=== PATIENT | female | born 1980 | race Caucasian/White ===

== ENCOUNTER 2020-07-05 16:22 | Emergency (ER) | payer SELFPAY ==
--- NOTE | 2020-07-05 17:44 | EDM.PDOC ---
ED HPI GENERAL MEDICAL PROBLEM - General Chief Complaint: Respiratory Problem Stated Complaint: NO TASTE/COUGH/CONGESTED/BURNING IN CHEST Time Seen by Provider: 07/05/20 16:36 Source of Information: Reports: Patient, RN Notes Reviewed History Limitations: Reports: No Limitations - History of Present Illness INITIAL COMMENTS - FREE TEXT/NARRATIVE: Patient is a 40 year old female presenting to the emergency department with complaints of congestion, headache, body aches, chest tightness, mild cough, and loss of taste. Symptoms have been present for the last 3 days. States 2 days ago she had some nausea and vomiting, however that has resolved. She denies a known fever, however states she has felt hot at times. Her boyfriend also has similar symptoms. Vital signs in triage were stable. Oxygen saturation 100% on room air. Patient was afebrile. head Pain Score (Numeric/FACES): 7 - Related Data Allergies Allergy/AdvReac Type Severity Reaction Status Date / Time No Known Allergies Allergy Verified 07/05/20 16:36 Home Meds: Home Meds . [No Known Home Meds] 07/05/20 [History] Past Medical History - Past Health History Medical/Surgical History: Denies Medical/Surgical History Social & Family History - Tobacco Use Tobacco Use Status *Q: Current Every Day Tobacco User Years of Tobacco use: 20 Packs/Tins Daily: 0.5 - Recreational Drug Use Recreational Drug Use: No ED ROS GENERAL - Review of Systems Review Of Systems: Comprehensive ROS is negative, except as noted in HPI. ED EXAM, GENERAL - Physical Exam Exam: See Below General Appearance: Alert, WD/WN, No Apparent Distress Throat/Mouth: Normal Inspection, Normal Lips, Normal Teeth, Normal Gums, Normal Oropharynx, Normal Voice, No Airway Compromise Respiratory/Chest: No Respiratory Distress, Lungs Clear, Normal Breath Sounds, No Accessory Muscle Use, Chest Non-Tender Cardiovascular: Normal Peripheral Pulses, Regular Rate, Rhythm, No Edema, No Gallop, No JVD, No Murmur, No Rub GI/Abdominal: Normal Bowel Sounds, Soft, Non-Tender, No Organomegaly, No Distention, No Abnormal Bruit, No Mass Neurological: Alert, Oriented, CN II-XII Intact, Normal Cognition, Normal Gait, Normal Reflexes, No Motor/Sensory Deficits Psychiatric: Normal Affect, Normal Mood Skin Exam: Warm, Dry, Intact, Normal Color, No Rash Course - Vital Signs Last Recorded V/S: Last Vital Signs Temp 97.3 F 07/05/20 16:33 Pulse 84 07/05/20 16:33 Resp 18 07/05/20 16:33 BP 131/88 07/05/20 16:33 Pulse Ox 100 07/05/20 16:33 - Orders/Labs/Meds Labs: Laboratory Tests 07/05/20 Range/Units 17:54 SARS-CoV-2 (PCR) Not detected (NOT DETECT) - Re-Assessments/Exams Free Text/Narrative Re-Assessment/Exam: Patient is a 40-year-old female presenting to the emergency department with complaints of fever, body aches, cough, chest tightness, runny nose, and loss of taste and smell. Oxygen saturation is 100% on room air. Ordered a chest x-ray and a [facility] Covid test. 07/05/20 17:42 Chest x-ray was negative for any acute abnormalities. We will discharge patient home with symptomatic treatment. Recommend quarantine until Covid results are available. Discharge instructions as documented. Departure - Departure Time of Disposition: 17:43 Disposition: Home, Self-Care 01 Condition: Good Clinical Impression: Viral respiratory illness - Discharge Information *PRESCRIPTION DRUG MONITORING PROGRAM REVIEWED*: No *COPY OF PRESCRIPTION DRUG MONITORING REPORT IN PATIENT ROSI: No Instructions: Viral Respiratory Infection, [id number] Referrals: PCP,None [Primary Care Provider] - Forms: ED Department Discharge, ED Return to Work/School Form Additional Instructions: You were seen in the emergency department today for congestion, sore throat, body aches, cough, chest tightness. Chest x-ray was completed and found to be normal. A coronavirus test has been completed. Results should be available in 24 to 72 hours. Recommend symptomatic treatment in the meantime. You should isolate until symptoms have resolved and Covid results are available. Return to ER as needed. Sepsis Event Note (ED) - Evaluation Sepsis Screening Result: No Definite Risk
--- NOTE | 2020-07-09 13:30 | CR ---
PROCEDURE INFORMATION: Exam: XR Chest, 1 View Exam date and time: 07/05/2020 4:43 PM Age: 40 years old Clinical indication: Cough and shortness of breath and other: Covid precautions TECHNIQUE: Imaging protocol: XR of the chest Views: 1 view. COMPARISON: No relevant prior studies available. FINDINGS: Lungs: Unremarkable. No consolidation. Pleural space: Unremarkable. No pleural effusion. No pneumothorax. Heart/Mediastinum: Unremarkable. No cardiomegaly. Bones/joints: Unremarkable. IMPRESSION: No acute findings. Thank you for allowing us to participate in the care of your patient. Dictated and Authenticated by: Eric Laws MD 07/05/2020 6:24 PM Central Time ([place] & [place]) HILARY
== END 2020-07-05 17:58 | disposition home or self-care (01) ==
LOC: JD.ED 16:22
DX: J98.8 Other specified respiratory disorders (principal); B97.89 Other viral agents as the cause of diseases classified elsewhere; F17.210 Nicotine dependence, cigarettes, uncomplicated; Z20.828 Contact with and (suspected) exposure to other viral communicable diseases
CPT/HCPCS: 71045; 71045-26; 99282; 99285-25; U0002

== ENCOUNTER 2020-07-14 22:52 | Emergency (ER) | payer SELFPAY ==
[2020-07-14] MEDS ORDERED: Ibuprofen 800 MG Tab PO ONE (23:20)
[2020-07-14] MEDS ORDERED: Amoxicillin/Clavulanate K 875-125 MG Tab PO STA (23:23)
--- NOTE | 2020-07-14 23:39 | EDM.PDOC ---
ED HPI GENERAL MEDICAL PROBLEM - General Chief Complaint: Neck Problem Stated Complaint: neck and head pain Time Seen by Provider: 07/14/20 23:00 Source of Information: Reports: Patient History Limitations: Reports: No Limitations - History of Present Illness INITIAL COMMENTS - FREE TEXT/NARRATIVE: Ms. Edwards is a pleasant 40-year-old woman who, medical records indicate, was seen in this ED on 07/05/2020 with a complaint at that time of nasal congestion, headache, body aches, chest tightness, a mild cough, and loss of taste since 07/02/2020. She had vomited on 07/03/2020, but none since. She had not had a fever. Her boyfriend apparently had similar symptoms. Her vitals were found to be normal, with no fever and an oxygen saturation of 100% on room air. Physical exam was unremarkable. A chest x-ray found no acute findings. A send-out swab for the SARS-CoV-2 virus subsequently returned negative. The patient was advised to self isolate, which she states she did, up until today, when her work made her return to work. The patient now returns the ED stating that she developed right ear and right posterolateral neck pain around 15:00 this afternoon, after she blew her nose. In addition, she continues to have a cough with dyspnea, fatigue, and loss of taste and smell. She has still not had a fever, nausea, vomiting, constipation, or diarrhea. The patient states that she took some [id number] cold medicine yesterday, and [place] cold medicine today. Here in the ED, the patient is found to be hemodynamically stable, afebrile, saturating 99% on room air. The patient does not have a PCP. She has not received an influenza vaccine this season, and declined an offer to receive one here tonight. 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) - Past Surgical History HEENT Surgical History: Reports: Tonsillectomy Female Surgical History: Reports: Other (See Below) (Salpingectomy) Social & Family History - Family History Family Medical History: Noncontributory - Tobacco Use Tobacco Use Status *Q: Current Every Day Tobacco User Years of Tobacco use: 11 Packs/Tins Daily: 0.5 - Caffeine Use Caffeine Use: Reports: Coffee, Soda - Alcohol Use Alcohol Use History: No Date/Time of Last Drink Comment: None since 2018 due to being on probation - Recreational Drug Use Recreational Drug Use: Yes Drug Use in Last 12 Months: No Recreational Drug Type: Reports: Marijuana/Hashish (last smoked 2017 due to being on probation), Methamphetamine (last snorted 2018 due to being on probation) - Living Situation & Occupation Living situation: Reports: , Alone Occupation: Employed ([employer]) ED ROS ENT - Review of Systems Review Of Systems: Comprehensive ROS is negative, except as noted in HPI. ED EXAM, ENT - Physical Exam Exam: See Below Exam Limited By: No Limitations General Appearance: Alert, WD/WN, Mild Distress (appears uncomfortable) Eye Exam: Bilateral Eye: EOMI, Normal Inspection Ears: Other (Left external auditory canal normal in appearance. No erythema of the left TM, however, there is some bulging with clear fluid and bubbles seen behind the TM. The right external auditory canal is notable for a trickle of fresh blood emanating along the inferior aspect. There is a piece of cerumen lodged on the wall of the canal obstructing much of the view of the tympanic membrane, and the patient is quite tender to any manipulation, however, of what is visible of the right TM, there appears to be erythema. No obvious purulence seen.) Nose: Normal Inspection, No Blood, Clear Rhinorrhea Mouth/Throat: Normal Inspection, Normal Gums, Normal Lips, Normal Oropharynx (no visible tonsils), Normal Teeth Head: Atraumatic, Normocephalic Neck: Normal Inspection, Supple, Full Range of Motion, Lymphadenopathy (R) (posterior cervical chain - tender). No: Lymphadenopathy (L) Respiratory/Chest: No Respiratory Distress, Lungs Clear, Normal Breath Sounds, No Accessory Muscle Use Cardiovascular: Normal Peripheral Pulses, Regular Rate, Rhythm, No Edema, No Gallop, No JVD, No Murmur, No Rub GI/Abdominal: Normal Bowel Sounds, Soft, Non-Tender, No Organomegaly, No Distention, No Abnormal Bruit, No Mass Back: Normal Inspection, Full Range of Motion Extremities: Normal Inspection, Normal Range of Motion, No Pedal Edema, Normal Capillary Refill Neurological: Alert, Oriented, Normal Cognition, No Motor/Sensory Deficits Psychiatric: Anxious Skin: Warm, Dry, Intact, Normal Color, No Rash Course - Vital Signs Last Recorded V/S: Last Vital Signs Temp 36.7 C 07/14/20 22:59 Pulse 94 07/14/20 22:59 Resp 20 07/14/20 22:59 BP 131/86 07/14/20 22:59 Pulse Ox 99 07/14/20 22:59 - Orders/Labs/Meds Orders: Active Orders 24 hr Category Date Time Status CORONAVIRUS COVID-19 AMANDA [[facility]LEC] Stat Lab 07/14/20 23:48 Ordered Meds: Medications Discontinued Medications Generic Name Dose Route Start Last Admin Trade Name Freq PRN Reason Stop Dose Admin Amoxicillin/Clavulanate Potassium 1 tab 07/14/20 23:23 07/14/20 23:40 Augmentin 875 Mg/125 Mg PO 07/14/20 23:24 1 tab ONETIME STA Administration Ibuprofen 800 mg 07/14/20 23:20 07/14/20 23:40 Motrin PO 07/14/20 23:21 800 mg ONETIME ONE Administration - Re-Assessments/Exams Free Text/Narrative Re-Assessment/Exam: 07/14/20 23:33 As above, the patient has had symptoms of congestion, cough, dyspnea headache, fatigue, body aches, chest tightness, no loss of taste and smell since 07/02/2020. She then developed right ear pain after she blew her nose around 15:00 this afternoon. On examination, she has blood trickling from her right external auditory canal, consistent with a ruptured tympanic membrane, however, I am unable to adequately visualize her tympanic membrane due to some unfortunately positioned cerumen, as well as tenderness to examination. She will be started on oral Augmentin and ibuprofen, and I will submit a 10-day prescription for Augmentin. She can take [id number] ibuprofen as needed for discomfort. I will refer her to ENT. The patient tested negative for the SARS-CoV-2 virus on 07/05/2020, however, I strongly suspect that it is a false negative test. We will retest her again tonight, and I will provide her a note to be off work for the next several days, until she can get her test results. Departure - Departure Time of Disposition: 23:39 Disposition: Home, Self-Care 01 Condition: Good Clinical Impression: Rupture of right tympanic membrane - Discharge Information *PRESCRIPTION DRUG MONITORING PROGRAM REVIEWED*: Not Applicable *COPY OF PRESCRIPTION DRUG MONITORING REPORT IN PATIENT ROSI: Not Applicable Prescriptions: Amoxicillin/Potassium Clav [Augmentin 875-125 Tablet] 1 tab PO Q12H #19 tablet Instructions: Tympanic Membrane Perforation-SportsMed Referrals: Lauro Crisostomo MD [Ordering Only Provider] - Forms: ED Department Discharge, ED Return to Work/School Form Additional Instructions: You were seen in the emergency room for right ear pain since this afternoon, in addition to continuing symptoms of cough, shortness of breath, fatigue, and loss of taste and smell. On examination, you appear to have a ruptured right tympanic membrane (eardrum). You have been started on the antibiotic Augmentin, and a prescription for Augmentin has been sent to the [facility]. Take 1 tablet of Augmentin every 12 hours, starting tomorrow morning, 07/15/2020. Finish the entire prescription unless told otherwise by a doctor. You may take [id number] ibuprofen, 3 to 4 tablets (600 -800 mg) up to every 8 hours, with food, as needed for discomfort. Follow-up with the ENT Dr. Lauro Crisostomo, in [place], at the next available appointment. Don't forget that [place] is 1 hour ahead of us. As discussed, despite your negative test for COVID-19 on 07/05/2020, you most likely have COVID-19. You were retested today. You have been provided with a note to be off work so that you can self isolate for the next several days, until you get your test results. If you test positive, you need to self isolate until you test negative, twice. If any other problems, please do not hesitate to return to the ER. Sepsis Event Note (ED) - Evaluation Sepsis Screening Result: No Definite Risk - Focused Exam Vital Signs: Vital Signs Temp Pulse Resp BP Pulse Ox 07/14/20 22:59 36.7 C 94 20 131/86 99 - My Orders Last 24 Hours: My Active Orders 07/14/20 23:48 CORONAVIRUS COVID-19 AMANDA [MOLEC] Stat - Assessment/Plan Last 24 Hours: My Active Orders 07/14/20 23:48 CORONAVIRUS COVID-19 AMANDA [MOLEC] Stat
[2020-07-14] MEDS ORDERED: Acetaminophen/Butalbital/Caffeine 325-50-40 MG Tab PO ONE (23:49)
== END 2020-07-15 | disposition home or self-care (01) ==
LOC: JD.ED 22:52
DX: H72.91 Unspecified perforation of tympanic membrane, right ear (principal); F17.210 Nicotine dependence, cigarettes, uncomplicated; Z20.828 Contact with and (suspected) exposure to other viral communicable diseases
CPT/HCPCS: 87635; 99284; A9270; 99283; U0002

== ENCOUNTER 2023-12-18 21:04 | Emergency (ER) | payer BC, MEDICAID | END 2023-12-18 23:00 | disposition home or self-care (01) | LOC: JD.ED 21:04 | DX: Z22.322 Carrier or suspected carrier of Methicillin resistant Staphylococcus aureus (principal); Z79.899 Other long term (current) drug therapy | CPT/HCPCS: 87070; 87147; 87641; 87651-QW; 99282; 99283 ==